=== PATIENT | female | born 1955 | race Caucasian/White ===

== ENCOUNTER 2024-10-15 18:39 | Emergency (ER) | payer SELFPAY ==
[~2024-10-15] VITALS: Ht 162.5 cm; Wt 55.8 kg
[~2024-10-15 18:39] MED LIST: BENADRYL50 MG PO; NKHM; PREDNICOT20 MG PO
[2024-10-15] MEDS ORDERED: HYDROmorphONE Hydrochloride 0.5 MG/0.5 ML SYRINGE IM ONE (19:00)
[2024-10-15] MEDS ORDERED: Acetaminophen/Hydrocodone 5 MG/325 MG TABLET PO ONE (19:45)
[2024-10-15] MEDS ORDERED: HYDROCODONE-AC1 EAC1 PO (19:46)
== END 2024-10-15 20:28 | disposition home or self-care (01) ==
LOC: ED 18:39
DX: S52.591A Other fractures of lower end of right radius, initial encounter for closed fracture (principal); Z88.5 Allergy status to narcotic agent; Z91.013 Allergy to seafood; Z90.710 Acquired absence of both cervix and uterus; W00.0XXA Fall on same level due to ice and snow, initial encounter; Y93.89 Activity, other specified; Y92.009 Unspecified place in unspecified non-institutional (private) residence as the place of occurrence of the external cause; Y99.8 Other external cause status

== ENCOUNTER → 2024-10-18 | Outpatient (CLI) | payer MEDICARE ==
[~2024-10-18] VITALS: Ht 160 cm; Wt 54.4 kg
[~2024-10-18] MED LIST changes: +HYDROCODONE-AC1 EAC1 PO
[2024-10-18 12:26] LABS: BUN 14 mg/dl (9-23); CHLORIDE 107 mmol/L (98-107); POTASSIUM 4.1 mmol/L (3.4-5.1)
[2024-10-18 12:59] LABS: BILIRUBIN Negative (Negative); BLOOD Negative (Negative); CLARITY Clear (Clear); COLOR Yellow (Yellow); GLUCOSE Negative (Negative); KETONE Negative (Negative); LEUKO ESTERASE Negative (Negative); NITRITE Negative (Negative); UROBILINOGEN 0.2 E.U./dl (0.0-1.0)
== END | disposition home or self-care (01) ==
LOC: LAB 03:21 → SDC 12:30 → EDSTATUS 10-19 12:30
PROVIDERS: ATTEND Orthopaedic Surgery
DX: S52.531A Colles' fracture of right radius, initial encounter for closed fracture (principal); R00.0 Tachycardia, unspecified; X58.XXXA Exposure to other specified factors, initial encounter; Y93.89 Activity, other specified; Y92.89 Other specified places as the place of occurrence of the external cause; Y99.8 Other external cause status

== ENCOUNTER → 2024-11-07 | Day surgery (SDC) | payer MEDICARE ==
[~2024-11-07] VITALS: Ht 160 cm; Wt 54.4 kg
[~2024-11-07] MED LIST changes: +ASPIRIN ADULT L81 M2 PO; +LOPRESSOR25 MG PO; +Lactated Ringer's Solution 1,000 ML IV ONE; +Lidocaine Hydrochloride 5 ML VIAL IV ONE; +Midazolam Hydrochloride 2 MG/2 ML VIAL IV ONE; +PROPOFOL 200 MG/20 ML VIAL IV ONE; +Ropivacaine Hydrochloride 5 MG/ML 20 ML AMP IJ ONE; +ceFAZolin sodium/sodium chlor 20 ML IV ONE; +ePHEDrine Sulfate 25 MG/5 ML SYRINGE IV ONE
[2024-11-07 11:15] VITALS: BP 140/46
[2024-11-07 14:35] VITALS: BP 131/47
[2024-11-07 14:50] VITALS: BP 122/51
[2024-11-07 15:05] VITALS: BP 132/47
== END | disposition home or self-care (01) ==
LOC: SDC 11-06 12:30
PROVIDERS: ATTEND Orthopaedic Surgery
DX: S52.531A Colles' fracture of right radius, initial encounter for closed fracture (principal); M81.0 Age-related osteoporosis without current pathological fracture; G43.909 Migraine, unspecified, not intractable, without status migrainosus; G89.18 Other acute postprocedural pain; F17.210 Nicotine dependence, cigarettes, uncomplicated; F10.90 Alcohol use, unspecified, uncomplicated; Z98.891 History of uterine scar from previous surgery; Z90.710 Acquired absence of both cervix and uterus; Z98.890 Other specified postprocedural states; Z91.018 Allergy to other foods; Z91.040 Latex allergy status; Z88.5 Allergy status to narcotic agent; Z79.82 Long term (current) use of aspirin; Z79.899 Other long term (current) drug therapy; X58.XXXA Exposure to other specified factors, initial encounter; Y93.89 Activity, other specified; Y92.89 Other specified places as the place of occurrence of the external cause; Y99.8 Other external cause status

== ENCOUNTER 2024-11-08 04:34 | Emergency (ER) | payer MEDICARE ==
[~2024-11-08] VITALS: Ht 160 cm
[~2024-11-08 04:34] MED LIST changes: -Lactated Ringer's Solution 1,000 ML IV ONE; -Lidocaine Hydrochloride 5 ML VIAL IV ONE; -Midazolam Hydrochloride 2 MG/2 ML VIAL IV ONE; -PROPOFOL 200 MG/20 ML VIAL IV ONE; -Ropivacaine Hydrochloride 5 MG/ML 20 ML AMP IJ ONE; -ceFAZolin sodium/sodium chlor 20 ML IV ONE; -ePHEDrine Sulfate 25 MG/5 ML SYRINGE IV ONE
[2024-11-08] MEDS ORDERED: Acetaminophen/Hydrocodone 5 MG/325 MG TABLET PO ONE (05:35)
[2024-11-08] MEDS ORDERED: Ondansetron Hydrochloride 4 MG TAB SL ONE (05:35)
== END 2024-11-08 06:41 | disposition home or self-care (01) ==
LOC: ED 04:34
DX: G89.18 Other acute postprocedural pain (principal); G43.909 Migraine, unspecified, not intractable, without status migrainosus; Z88.5 Allergy status to narcotic agent; Z91.018 Allergy to other foods; Z90.710 Acquired absence of both cervix and uterus; Z98.890 Other specified postprocedural states

== ENCOUNTER → 2024-11-22 | Outpatient (CLI) | payer MEDICARE | END | disposition home or self-care (01) | LOC: ORTHO 02:16 | PROVIDERS: ATTEND Orthopaedic Surgery | DX: S52.531A Colles' fracture of right radius, initial encounter for closed fracture (principal); M79.89 Other specified soft tissue disorders; X58.XXXA Exposure to other specified factors, initial encounter; Y93.89 Activity, other specified; Y92.89 Other specified places as the place of occurrence of the external cause; Y99.8 Other external cause status ==

== ENCOUNTER → 2024-12-20 | Outpatient (CLI) | payer MEDICARE | END | disposition home or self-care (01) | LOC: ORTHO 12-19 15:11 | PROVIDERS: ATTEND Orthopaedic Surgery | DX: S52.531D Colles' fracture of right radius, subsequent encounter for closed fracture with routine healing (principal); X58.XXXD Exposure to other specified factors, subsequent encounter ==

== ENCOUNTER → 2025-01-01 | Outpatient (CLI) | payer MEDICARE | END | disposition home or self-care (01) | LOC: RAD 13:38 | PROVIDERS: ATTEND Orthopaedic Surgery | DX: M81.0 Age-related osteoporosis without current pathological fracture (principal) ==